=== PATIENT | male | born 1960 | race Caucasian/White ===

== ENCOUNTER 2018-01-05 01:56 | Emergency (ER) | payer OTHER ==
[2018-01-05 02:25] VITALS: TEMP 98.7; BMI 25.7
--- NOTE | 2018-01-05 03:00 | PDOC ---
History of Present Illness - General Chief Complaint: Seizure Stated Complaint: SEIZURE Time Seen by Provider: 01/05/18 02:15 History Source: Patient, Old Records Exam Limitations: No Limitations - History of Present Illness Initial Comments: 01/05/18 02:54 57-year-old male with past medical history of rheumatoid arthritis, hypertension , psoriatic arthritis, seizures, ?protoporphyria was brought to the emergency department by EMS status post seizure-like activity. Patient states that approximately 6:30 this evening, he got up to use the restroom and began to have a "strange feeling" in his nose. After that he states he fell to the floor and began shaking. Patient states was on the floor for approximately 20 minutes before his found him and activated EMS. In transport with EMS patient noted to have tonic-clonic like activity from the shoulders down. EMS personnel state the patient was able to talk during his seizure-like activity. Patient with full recollection of events immediately after cessation of tonic-clonic activity. Patient was given Versed 5 mg total prior to hospital arrival. Patient reports 2 days of rhinorrhea, nasal congestion, anorexia, vomiting. He denies fevers, chills, cough, shortness of breath, abdominal pain, nausea or diarrhea. Patient also with pain to bilateral knees, bilateral elbows, bilateral wrists which is his usual RA pain. Patient currently does not take any antiepileptic drugs because his primary doctor has taken him off the medications telling him he does not have a seizure disorder. Past History - Past Medical History Allergies/Adverse Reactions: Allergies Allergy/AdvReac Type Severity Reaction Status Date / Time No Known Allergies Allergy Verified 01/05/18 02:23 Home Medications: Ambulatory Orders Unobtainable [Unobtainable] 07/23/15 GI Disorders: Yes (REFLUX.) HTN: Yes Liver Disease: Yes (HEP C.) Seizures: Yes - Surgical History Abdominal Surgery: Yes Cholecystectomy: Yes - Suicide/Smoking/Psychosocial Hx Smoking History: Former smoker Have you smoked in the past 12 months: No Number of Cigarettes Smoked Daily: 1 If you are a former smoker, when did you quit?: 20 years ago Information on smoking cessation initiated: No Hx Alcohol Use: No Drug/Substance Use Hx: No Substance Use Type: None Review of Systems - Review of Systems Able to Perform ROS?: Yes Is the patient limited Nigerien proficient: No Constitutional: Yes: See HPI HEENTM: Yes: See HPI Respiratory: No: Symptoms reported Cardiac (ROS): No: Symptoms Reported ABD/GI: Yes: See HPI : No: Symptoms Reported Musculoskeletal: Yes: See HPI Integumentary: No: Symptoms Reported Neurological: Yes: See HPI Endocrine: No: Symptoms Reported *Physical Exam - Vital Signs Last Vital Signs Temp Pulse Resp BP Pulse Ox 98.7 F 72 20 132/53 98 01/05/18 01:59 01/05/18 01:59 01/05/18 01:59 01/05/18 01:59 01/05/18 01:59 - Physical Exam General Appearance: Yes: Appropriately Dressed. No: Apparent Distress HEENT: positive: Pharynx Normal, Nasal Congestion, Rhinorrhea. negative: Muffled/Hoarse voice, Sinus Tenderness Neck: positive: Trachea midline, Supple Respiratory/Chest: positive: Lungs Clear, Wheezing (end expiratory). negative: Accessory Muscle Use Cardiovascular: positive: Regular Rhythm, Regular Rate. negative: Edema, Murmur Gastrointestinal/Abdominal: positive: Normal Bowel Sounds, Soft. negative: Tender Musculoskeletal: positive: Normal Inspection. negative: CVA Tenderness Extremity: positive: Tender (over bilateral wrists elbows and knees), Other ( swan-neck defoted in bilateral hands with swelling to MCP of digits 2 through 4 right and left hand) Neurologic: positive: Fully Oriented, Alert, Normal Mood/Affect, Normal Response , Motor Strength 5/5, Finger to Nose. negative: Facial Droop, Numbness, Sensory Deficit, Confused Heart Score/ECG Review - History History: Slightly suspicious - Electrocardiogram EKG: Normal - Age Age: 45-65 - Risk Factors Risk Factors Heart Score: Yes Hx Hypertension Based on the list above the patient has:: 1-2 risk factors - Troponin Troponin: </= normal limit - Score Heart Score - Total: 2 - ECG Intrepretation Rhythm: Regular Rhythm - Franklin Franklin: Left Franklin Deviation - ECG Impressions Normal ECG: Yes ED Treatment Course - LABORATORY CBC & Chemistry Diagram: 01/05/18 03:42 01/05/18 03:42 Medical Decision Making - Medical Decision Making 01/05/18 03:05 A/P: 57-year-old male with history of RA, hypertension, psoriatic arthritis, seizures presents to the emergency department with 2 days of flulike symptoms with ?seizure Neurological exam within normal limits. No focal deficits. PERRLA 4mm briskly reactive. Nasal congestion or rhinorrhea present. Lungs clear to auscultation bilaterally with end expiratory wheezes noted. Abdomen soft nontender nondistended. CBC, CMP, CPK, UA, cardiac profile, EKG, chest x-ray, Amanda 01/05/18 05:41 Chest x-ray as read by me: No infiltrate or consolidation is noted. patient has had no any seizure-like activity while here. Labs unremarkable with the exception of urine tox positive for THC and benzodiazepines. Patient did receive Versed en route to hospital. Wheezes cleared. Will discharge the patient home with symptomatic treatment of his URI symptoms. I discussed the physical exam findings, ancillary test results and final diagnoses with the patient. I answered all of the patient's questions. The patient was satisfied with the care received and felt comfortable with the discharge plan and treatment plan. The patient will call his doctor within 72 hours to arrange follow-up and will return to the Emergency Department with any new, persistent or worsening symptoms. *DC/Admit/Observation/Transfer Diagnosis at time of Disposition: Seizure-like activity URI (upper respiratory infection) Qualifiers: URI type: unspecified URI Qualified Code(s): J06.9 - Acute upper respiratory infection, unspecified - Discharge Dispostion Disposition: HOME Condition at time of disposition: Stable Admit: No - Referrals Referrals: Jonah Haddad MD [Primary Care Provider] - - Patient Instructions Additional Instructions: Rest, drink lots of fluids: Teas, water, soups, Pedialyte Saltwater gargles Steamy showers/seem to face break up mucus Avoid contact with others until fevers and cough resolved Lots of handwashing and good hygiene Continue [id number] medications for symptomatic relief Tylenol or Motrin for fever and pain Followup with private physician in one to 2 days as needed Return to emergency department for worsened symptoms, fevers, dehydration - Post Discharge Activity
--- NOTE | 2018-01-05 03:05 | PDOC ---
*Physical Exam - Vital Signs Last Vital Signs Temp Pulse Resp BP Pulse Ox 98.7 F 72 20 132/53 98 01/05/18 01:59 01/05/18 01:59 01/05/18 01:59 01/05/18 01:59 01/05/18 01:59 ED Treatment Course - LABORATORY CBC & Chemistry Diagram: 01/05/18 03:42 01/05/18 03:42 Medical Decision Making - Medical Decision Making 01/05/18 03:04 agree with care from DARLINE Weaver *DC/Admit/Observation/Transfer Diagnosis at time of Disposition: URI (upper respiratory infection), Seizure-like activity - Discharge Dispostion Disposition: HOME Condition at time of disposition: Stable - Referrals Referrals: Jonah Haddad MD [Primary Care Provider] - - Patient Instructions Additional Instructions: Rest, drink lots of fluids: Teas, water, soups, Pedialyte Saltwater gargles Steamy showers/seem to face break up mucus Avoid contact with others until fevers and cough resolved Lots of handwashing and good hygiene Continue [id number] medications for symptomatic relief Tylenol or Motrin for fever and pain Followup with private physician in one to 2 days as needed Return to emergency department for worsened symptoms, fevers, dehydration - Post Discharge Activity
[2018-01-05] MEDS ORDERED: ALBUTEROL SO4 2.5/IPRATROPIUM 0.5 INH SOL 3 ML VIAL.NEB. NEB ONE (04:09)
[2018-01-05 04:14] LABS: BASO % 0.7 % (0-2.0); EOS % 0.7 % (0-4.5); HEMOGLOBIN 13.7 GM/dL (11.7-16.9); LYMPH % 17.5 % (8-40); MCH 27.6 pg (25.7-33.7); MCHC 32.5 g/dl (32.0-35.9); MEAN CELL VOLUME 84.9 fl (80-96); MEAN PLT VOLUME 8.6 fl (7.5-11.1); NEUT % 72.1 % (42.8-82.8); PLATELET COUNT 278 K/MM3 (134-434); RBC 4.95 M/mm3 (4.00-5.60); RDW 14.7 % (11.9-15.9); WHITE BLOOD COUNT 9.1 K/mm3 (4.0-10.0)
[2018-01-05] MEDS: ALBUTEROL SO4 2.5/IPRATROPIUM 0.5 INH SOL 3 ML VIAL.NEB. NEB SCH ×4 (04:15→05:27)
[2018-01-05 04:42] LABS: ALBUMIN 2.8 g/dl (3.4-5.0); ANION GAP 9 (8-16); BILIRUBIN,TOTAL 0.5 mg/dL (0.2-1.0); BLOOD UREA NITROGEN 17 mg/dL (7-18); CALCIUM 8.2 mg/dL (8.5-10.1); CHLORIDE 106 mmol/L (98-107); CO2 26 mmol/L (21-32); CREATININE 0.6 mg/dL (0.7-1.3); GLUCOSE,RANDOM 91 mg/dL (74-106); SGOT/AST 15 U/L (15-37); SGPT/ALT 18 U/L (12-78); SODIUM 141 mmol/L (136-145); TOT PROT 6.5 g/dl (6.4-8.2)
[2018-01-05 04:44] LABS: ALK PHOS 91 U/L (45-117)
[2018-01-05 05:09] LABS: URINE APPEARANCE CLEAR; URINE BILIRUBIN NEGATIVE (NEGATIVE); URINE BLOOD NEGATIVE (NEGATIVE); URINE COLOR YELLOW; URINE GLUCOSE (UA) NEGATIVE (NEGATIVE); URINE KETONE NEGATIVE (NEGATIVE); URINE LEUK ESTERASE NEGATIVE (NEGATIVE); URINE NITRITE NEGATIVE (NEGATIVE); URINE PROTEIN NEGATIVE (NEGATIVE); URINE UROBILINOGEN 4.0 E.U/dl mg/dL (0.2-1.0)
[2018-01-05 05:28] LABS: COCAINE, UR NEGATIVE ng/ml (CUTOFF=300); METHADONE, UR NEGATIVE ng/ml (CUTOFF=300); OPIATES, URI NEGATIVE ng/ml (CUTOFF=300); PHENCYCLIDINE,URINE NEGATIVE ng/ml (CUTOFF=25); URINE AMPHETAMINES NEGATIVE ng/ml (CUTOFF=500); URINE BARBITURATES NEGATIVE ng/ml (CUTOFF=200)
[2018-01-05 05:29] LABS: URINE BENZODIAZEPINES POSITIVE ng/ml (CUTOFF=200)
[2018-01-05 06:15] VITALS: BP 157/88; PULSE 85
--- NOTE | 2018-01-05 09:03 | EKG ---
Test Reason : Blood Pressure : / mmHG Vent. Rate : 075 BPM Atrial Rate : 075 BPM P-R Int : 118 ms QRS Dur : 082 ms QT Int : 376 ms P-R-T Axes : 042 -35 -04 degrees QTc Int : 419 ms POOR DATA QUALITY, INTERPRETATION MAY BE ADVERSELY AFFECTED NORMAL SINUS RHYTHM WITH SINUS ARRHYTHMIA POSSIBLE LEFT ATRIAL ENLARGEMENT LEFT AXIS DEVIATION ABNORMAL ECG WHEN COMPARED WITH ECG OF 24-JUN-2016 20:01, NO SIGNIFICANT CHANGE WAS FOUND Confirmed by DONOVAN BAKER MD ([id number]) on 01/05/2018 9:02:42 AM Referred By: Confirmed By:DONOVAN BAKER MD
== END 2018-01-05 06:16 | disposition home or self-care (01) ==
LOC: JER 01:56
PROC: 3E0F7GC Introduction of Other Therapeutic Substance into Respiratory Tract, Via Natural or Artificial Opening (ICD-10-PCS; principal; 2018-01-05)
DX: R56.9 Unspecified convulsions (principal); J06.9 Acute upper respiratory infection, unspecified; I10 Essential (primary) hypertension; M06.9 Rheumatoid arthritis, unspecified; L40.50 Arthropathic psoriasis, unspecified; B18.2 Chronic viral hepatitis C
CPT/HCPCS: 36415; 71045-TC-FY; 80053; 80307; 81003; 82550; 84484; 85025; 93005; 93010; 94640; 99282-25

== ENCOUNTER 2022-12-28 18:30 | Emergency (ER) | payer OTHER ==
[2022-12-28 18:58] VITALS: BP 196/96; PULSE 96; RESP 22; TEMP 97.8; BMI 26.2
[2022-12-28] MEDS ORDERED: ACETAMINOPHEN 500 MG TABLET (FP) PO ONE (20:26)
[2022-12-28] MEDS ORDERED: METHOCARBAMOL 500 MG TABLET PO ONE (20:26)
[2022-12-28] MEDS ORDERED: KETOROLAC TROMETHAMINE 30 MG/1 ML VIAL IM ONE (20:26)
[2022-12-28] MEDS ORDERED: KETOROLAC TROMETHAMINE 30 MG/1 ML VIAL ONE (20:32)
[2022-12-28] MEDS ORDERED: ACETAMINOPHEN 325 MG TABLET (FP) ONE (20:32)
[2022-12-28] MEDS ORDERED: METHOCARBAMOL 500 MG TABLET ONE (20:32)
[2022-12-28 20:51] LABS: EPI CELLS 4 /uL (0-25.1); HYALINE CASTS 2 /uL (0-3.1); PH,URINE 5.5 (5.0-8.0); URINE APPEARANCE CLEAR; URINE BACTERIA 3 /uL (0-1359); URINE BILIRUBIN 1+ (NEGATIVE); URINE COLOR DK YELLOW; URINE GLUCOSE (UA) NEGATIVE (NEGATIVE); URINE KETONE TRACE (NEGATIVE); URINE LEUK ESTERASE NEGATIVE (NEGATIVE); URINE NITRITE NEGATIVE (NEGATIVE); URINE PROTEIN 2+ (NEGATIVE); URINE RBC 11 /uL (0-23.9); URINE WBC 10 /uL (0-25.8)
[2022-12-28] MEDS ORDERED: LACTATED RINGERS SOLUTION 1000 ML INFUS.BAG IV ONE (21:46)
[2022-12-28] MEDS ORDERED: LIDOCAINE 5% TOPICAL PATCH TP ONE (21:54)
[2022-12-28] MEDS ORDERED: LIDOCAINE 5% TOPICAL PATCH ONE (21:59)
[2022-12-28 22:26] LABS: BASO % 0.7 % (0-2.0); EOS % 0.7 % (0-4.5); HEMATOCRIT 47.2 % (35.4-49); HEMOGLOBIN 15.6 GM/dL (11.7-16.9); LYMPH % 27.8 % (8-40); MCH 28.4 pg (25.7-33.7); MCHC 33.1 g/dl (32.0-35.9); MEAN CELL VOLUME 85.7 fl (80-96); MEAN PLT VOLUME 9.2 fl (7.5-11.1); MONO % 7.2 % (3.8-10.2); NEUT % 63.6 % (42.8-82.8); PLATELET COUNT 281 10^3/uL (134-434); RDW 15.2 % (11.9-15.9); WHITE BLOOD COUNT 9.6 K/mm3 (4.0-10.0)
[2022-12-28 22:31] LABS: CALCIUM 9.3 mg/dL (8.5-10.1)
[2022-12-28 22:32] LABS: ALBUMIN 3.6 g/dl (3.4-5.0); BLOOD UREA NITROGEN 25.5 mg/dL (7-18)
[2022-12-28 22:37] LABS: BILIRUBIN,TOTAL 0.4 mg/dL (0.2-1); TOT PROT 7.4 g/dl (6.4-8.2)
[2022-12-28 22:44] LABS: CREATININE 0.7 mg/dL (0.55-1.3)
[2022-12-29] MEDS ORDERED: LIDOCAINE PATCH REMOVAL MC SCH (10:00)
== END 2022-12-28 23:07 | disposition home or self-care (01) ==
LOC: JER 18:30 → SUPCPDRO 18:30 → JER 23:07
PROC: 3E0233Z Introduction of Anti-inflammatory into Muscle, Percutaneous Approach (ICD-10-PCS; principal; 2022-12-28)
DX: M79.604 Pain in right leg (principal); M54.50 Low back pain, unspecified
CPT/HCPCS: 36415; 72131-TC; 80053; 81003; 82550; 82553; 85025; 87086; 99284-25